=== PATIENT | male | born 1975 | race Caucasian/White ===

== ENCOUNTER 2024-05-23 18:13 | Emergency (ER) | payer OTHER, SELFPAY ==
[2024-05-23 18:15] VITALS: BP 156/91
--- NOTE | 2024-05-23 18:50 | ED.GENMED ---
History of Present Illness
General
Chief Complaint: Flank Pain
Source: patient
Exam Limitations: none
Time Seen by Provider: 05/23/24 18:30
History of Present Illness
History of Present Illness:
This is a 48 year old male that comes in with c/o severe right sided abd pain. States that he was just standing in his driveway when he got this acute right sided flank pain. States that at first he thought this was musculoskeletal in nature. States
that he then broke out in a sweat and vomiting. States that he tried laying down and it just felt sore. Denies any fever, chills, chest pain, SOB, nausea, diarrhea, headache, dizziness, urinary burning.
Past History
Past History
ED Past Medical History: HTN and Other (Polycystic kidney disease)
ED Past Surgical History: Urological (Kidney transplant Right)
Social History
Tobacco: Former smoker
Alcohol: None
Personal:
Living: with family
Employment: Employed
Review of Systems
Review of Systems
All Other Systems: ROS reviewed and negative except as documented in HPI and ROS
Constitutional: Reports no symptoms; Denies fever or chills
EENT: Reports no symptoms
Respiratory: Reports no symptoms; Denies cough or trouble breathing
Cardiac: Reports no symptoms; Denies chest pain
ABD/GI: Reports abdominal pain and vomiting; Denies nausea or diarrhea
: Reports no symptoms; Denies dysuria, frequency or urgency
Musculoskeletal: Reports no symptoms
Skin: Reports no symptoms
Neurological: Reports no symptoms; Denies dizzy or headache
Psychiatric: Reports no symptoms
Phy Exam
General Physical Exam
General Presentation: well appearing and no apparent distress
General age: appears stated age
General Skin: warm and dry
General Habitus: normal
General Mental: alert
General Hydration: appears well hydrated
ENT Exam
ENT Exam: TM's normal, pharynx normal and neck supple
Eye Exam
Eye Exam: EOMI
Cardiovascular Exam
Cardiovascular Exam: regular rate/rhythm, no edema, no murmur and normal peripheral pulses
Pulmonary Exam
Pulmonary Exam: lungs clear, no respiratory distress, no rales, chest non tender, no crackles, no rhonchi, no wheezing and no cough
Gastrointestinal Exam
Gastrointestinal Exam: normal bowel sounds, non tender, soft, no organomegaly, no pulsatile mass and non distended
Musculoskeletal Exam
Musculoskeletal Exam: full ROM and no edema
Skin Exam
Skin Exam: normal color, warm/dry, no rash and no petechia
Psychiatric Exam
Psychiatric Exam: normal mood/affect
Course
Orders/Labs/Results
Orders:
Orders
05/23/24 18:49
0.9% Sodium Chloride 1000 ml [Nss] 1,000 ml IV BOLUS
05/23/24 18:50
CT Abd/pel Without Iv Or Oral Urgent
Comment: Kidney transplant, Polycystic kidney disase
Reason For Exam: Right sided pain.
05/23/24 19:08
Complete Blood Count/With Diff Urgent
Comprehensive Metabolic Panel Urgent
05/23/24 19:11
Acetaminophen [Tylenol] 1,000 mg .ROUTE .STK-MED ONE
05/23/24 19:13
Acetaminophen [Tylenol] 1,000 mg PO NOW STA
05/23/24 19:55
Urinalysis Reflex To Culture Urgent
Date Specimen was Collected: 05/23/24
Time Specimen was Collected: 19:40
Abnormal Lab Results
05/23/24
19:08
Abs Immat Gran (auto) 0.1 H 10^3/uL
(0-0.05)
Absolute Neuts (auto) 7.8 H 10^3/uL
(1.4-6.5)
Absolute Lymphs (auto) 0.3 L 10^3/uL
(1.2-3.4)
Absolute Monos (auto) 0.7 H 10^3/uL
(0.1-0.6)
Immature Gran % 0.7 H %
(0-0.5)
Neutrophils % 86.1 H %
(42.2-75.2)
Lymphocytes % 3.8 L %
(20.5-51.1)
Carbon Dioxide 21 L mmol/L
(22-30)
BUN 35 H mg/dl
(9-20)
Creatinine 1.9 H mg/dL
(0.7-1.3)
05/23/24 19:08
05/23/24 19:08
Dehydration. Chronic renal insufficiency ( Patient Cr 1.8 on prior labs from his phone), Urine negative for infection.
Vital Signs
Initial and Last Documented VS:
Initial Vital Signs
Temp Pulse Resp BP Pulse Ox
99.0 F 90 16 156/91 99
05/23/24 18:15 05/23/24 18:15 05/23/24 18:15 05/23/24 18:15 05/23/24 18:15
Last Documented Vital Signs
Temp Pulse Resp BP Pulse Ox
99.0 F 83 16 133/82 98
05/23/24 18:15 05/23/24 19:13 05/23/24 19:13 05/23/24 20:00 05/23/24 20:00
MDM/Problems Addressed
Differential Diagnosis Includes:
Polycystic kidney rupture, Renal calculus,
MDM/Problems Addressed:
This is a 48 year old male that comes in with c/o right sided abd pain. States that he was just standing in his driveway when he started with severe pain. States that he was sweaty and then just vomited.
Will check labs, Give IV fluids, Urine and get CT scan.
Back into see patient. Reviewed CT scan and labs. Will have patient call his [employer] for further evaluation. Explained that this could be coming from his back as patient lifted an air conditioner last night. Patient can use Tylenol for pain.
Return with any concerns .
Chronic conditions affecting care:
Kidney transplant, Polycystic Kidney
Acute Exacerbation and/or Progression of Chronic Illness:
Polycystic kidney
*Radiology
Radiology exam reviewed: radiology read reviewed (CT night hawk-Transplant kidneyin the right lower quadrant without nephrolithiasis or hydronephrosis. ADPCKD with enlarged [place] kidneys containing innumerable cysts, as well as numerous hepatic
cysts. No hydronephrosis of the [place] kidneys. Normal contracted gallbladder. Mild sigmoid colon) and all reviewed NAD by ED Provider (CT cont- diverticulosis without diverticulitis. No intestinal obstruction or free air. Normal appendix. Enlarged
prostate. Aortoiliac atherosclerotic calcification. )
*Pulse Oximetry
Patient hypoxic: no
*EKG
Interpreted by ED Provider?: NA
Rate: EKG- N/A
*Bell Cleaner Interpretation
Rate: Bell Cleaner- N/A
*Critical Care Note
Total Time (30-74mins, 75-104mins- exclusive of procedures): Not Applicable
ED Attending Note
-
Portions of this chart may have been created with voice recognition software.� Occasional wrong word or��sound alike� substitutions may have occurred due to the inherent limitations of voice recognition software.
Discharge Plan
Departure
Patient Disposition: Home (Routine Discharge)
Date of Disposition: 05/23/24
Time of Disposition: 21:18
Patient with high blood pressure during this ER visit?: Yes
Condition: Good
Covid-19: Not Applicable
Discharge Problem:
Right flank pain
Instructions: Flank Pain (DC), BLOOD PRESSURE
Referrals:
Karen Green DO [Family Provider] -
Activity Restrictions/Additional Instructions:
As discussed, our blood work shows that your BUN/Cr are elevated. This is comparative to your prior labs on your phone. Your urine is negative for infection and your CT scan is negative for any acute process. Please follow up with your [employer]
for further evaluation. Please increase your water intake to 8-8oz of water daily. Tylenol for any discomfort. IF YOU HAVE ANY OTHER CONCERNS PLEASE RETURN TO THE EMERGENCY ROOM.
Interventions
Interventions:
*Risk Screen - Suicide Last Done: 05/23/24 19:07
*General Assessment Last Done: 05/23/24 19:07
*Neglect/Abuse Screening Last Done: 05/23/24 19:07
ED- Fall Risk Assessment Last Done: 05/23/24 19:42
*ED COVID-19 Vaccine History Last Done: 05/23/24 19:07
SC-Dclkeg-Fnrptotnzp Assessment Last Done: 05/23/24 19:12
ED-Male Genitourinary Assessment Last Done: 05/23/24 19:12
Discharge Date and Time
Print Language: YAKUT
[2024-05-23 19:01] VITALS: BP 137/97
[2024-05-23] MEDS: NSS 1000 IV (19:07)
[2024-05-23] MEDS: TYLENOL 1000 MG PO (19:13)
[2024-05-23 19:14] VITALS: BMI 31.5
[2024-05-23 19:16] LABS: % Basophils 0.9 % (0-2); % Eosinophils 0.8 % (0-6); % Immature Granulocytes 0.7 % (0-0.5); % Lymphocytes 3.8 % (20.5-51.1); % Monocytes 7.7 % (1.7-9.3); % Neutrophils 86.1 % (42.2-75.2); Absolute Basophils 0.1 10^3/uL (0-0.2); Absolute Eosinophils 0.1 10^3/uL (0-0.7); Absolute Immature Granulocytes 0.1 10^3/uL (0-0.05); Absolute Lymphocytes 0.3 10^3/uL (1.2-3.4); Absolute Monocytes 0.7 10^3/uL (0.1-0.6); Absolute Neutrophils 7.8 10^3/uL (1.4-6.5); Hematocrit 41.1 % (39.0-52.0); Hemoglobin 14.4 g/dL (13.0-18.0); Mean Corpuscular Hgb 29.6 pg (27.0-31.0); Mean Corpuscular Volume 84.6 fL (80.0-94.0); Mean Platelet Volume 9.9 fL (7.4-10.4); Nucleated Red Blood Cells % 0 % (-); Platelet Count 262 10^3/uL (130-400); Red Blood Cell Count 4.86 10^6/uL (4.70-6.10); Red Cell Dist. Width 12.6 % (11.5-14.5); White Blood Cell Count 9.1 10^3/uL (4.8-10.8)
[2024-05-23 19:35] LABS: ALT (SGPT) 23 U/L (0-50); AST (SGOT) 27 U/L (17-59); Albumin 4.3 g/dl (3.5-5.0); Alkaline Phosphatase 71 U/L (38-126); Blood Urea Nitrogen 35 mg/dl (9-20); Carbon Dioxide 21 mmol/L (22-30); Chloride 106 mmol/L (98-107); Estimated Creatinine Clearance 51 ml/min; Glucose 93 mg/dl (70-99); Potassium 4.7 mmol/L (3.5-5.1); Sodium 136 mmol/L (135-145); Total Bilirubin 0.7 mg/dl (0.2-1.3); Total Protein 6.7 g/dl (6.3-8.2); eGFR 42.71
[2024-05-23 20:00] VITALS: BP 133/82
[2024-05-23 20:04] LABS: Urine Albumin Negative (Neg - Trace); Urine Bilirubin Negative (Negative); Urine Character Clear (Clear); Urine Color Yellow; Urine Glucose Negative (Negative); Urine Ketone Negative (Negative); Urine Leukocyte Negative (Negative); Urine Nitrite Negative (Negative); Urine Occult Blood Negative (Negative); Urine Specific Gravity 1.005 (<1.030); Urine Urobilinogen Negative (Neg - 1+); Urine pH 6.5 (5.0-9.0)
[2024-05-23 21:00] VITALS: BP 128/82
== END 2024-05-23 21:38 | disposition home or self-care (01) ==
LOC: EMR 18:13
PROVIDERS: Clinical Nurse Specialist Family Health; EMERGENCY PHYSICIAN Emergency Medicine; FAMILY PHYSICIAN Family Medicine
DX: R10.9 Unspecified abdominal pain (principal); Q61.3 Polycystic kidney, unspecified; I12.9 Hypertensive chronic kidney disease with stage 1 through stage 4 chronic kidney disease, or unspecified chronic kidney disease; N18.9 Chronic kidney disease, unspecified; E86.0 Dehydration; Z87.891 Personal history of nicotine dependence; Z94.0 Kidney transplant status
CPT/HCPCS: 99284; 96360; 74176; 80053; 81003; 85025

== ENCOUNTER 2024-05-24 18:29 | Emergency (ER) | payer OTHER, SELFPAY ==
[2024-05-24 18:34] VITALS: BP 150/94
[2024-05-24 18:59] LABS: COVID-19 Antigen Negative (Negative)
[2024-05-24 20:05] VITALS: BP 166/102
[2024-05-24 21:10] VITALS: BP 135/95
[2024-05-24 21:14] VITALS: BMI 33.6
[2024-05-24 21:15] LABS: % Basophils 0.4 % (0-2); % Eosinophils 0.4 % (0-6); % Immature Granulocytes 0.4 % (0-0.5); % Lymphocytes 3.4 % (20.5-51.1); % Monocytes 9.8 % (1.7-9.3); % Neutrophils 85.6 % (42.2-75.2); Absolute Lymphocytes 0.4 10^3/uL (1.2-3.4); Absolute Monocytes 1.1 10^3/uL (0.1-0.6); Absolute Neutrophils 9.7 10^3/uL (1.4-6.5); Hematocrit 38.7 % (39.0-52.0); Hemoglobin 13.8 g/dL (13.0-18.0); Mean Corp Hgb Conc. 35.7 g/dL (33.0-37.0); Mean Corpuscular Hgb 28.8 pg (27.0-31.0); Mean Corpuscular Volume 80.8 fL (80.0-94.0); Mean Platelet Volume 9.4 fL (7.4-10.4); Nucleated Red Blood Cells % 0 % (-); Platelet Count 273 10^3/uL (130-400); Red Blood Cell Count 4.79 10^6/uL (4.70-6.10); Red Cell Dist. Width 12.5 % (11.5-14.5); White Blood Cell Count 11.3 10^3/uL (4.8-10.8)
[2024-05-24 21:34] LABS: ALT (SGPT) 20 U/L (0-50); AST (SGOT) 25 U/L (17-59); Albumin 4.3 g/dl (3.5-5.0); Alkaline Phosphatase 61 U/L (38-126); Blood Urea Nitrogen 24 mg/dl (9-20); Calcium 10.1 mg/dl (8.4-10.2); Carbon Dioxide 23 mmol/L (22-30); Chloride 108 mmol/L (98-107); Estimated Creatinine Clearance 62 ml/min; Glucose 101 mg/dl (70-99); Magnesium 1.6 mg/dl (1.6-2.3); Potassium 4.6 mmol/L (3.5-5.1); Sodium 138 mmol/L (135-145); Total Bilirubin 0.8 mg/dl (0.2-1.3); Total Protein 6.5 g/dl (6.3-8.2); eGFR 52.49
[2024-05-24 21:42] LABS: Lactic Acid 0.8 mmol/L (0.7-2.0)
[2024-05-24] MEDS: DECADRON 10 MG IV (22:09)
[2024-05-24] MEDS: OMNIPAQUE 50 ML PO (22:09)
[2024-05-24] MEDS: NSS 500 IV (22:10)
[2024-05-24] MEDS: MORPHINE SULFATE 2 MG IV (22:10)
--- NOTE | 2024-05-24 22:23 | ED.GENMED ---
History of Present Illness
General
Chief Complaint: Abdominal Pain
Source: patient
Exam Limitations: none
Time Seen by Provider: 05/24/24 19:54
Nursing documentation reviewed up to this point in time: agreed with
History of Present Illness
History of Present Illness:
Patient with history of kidney transplant at [facility] 1 year ago, secondary to underlying polycystic kidney disease, presents to ED secondary to persistent right mid back/flank pain over the past 2 days. Denies fever or
chills. Patient has had multiple episodes of vomiting secondary to pain. Denies diarrhea. Denies direct trauma. However, patient does report history of back pain and reports having lifted heavy objects recently, including yesterday afternoon,
shortly preceding his onset of symptoms. Patient denies any pain at the time when he was lifting heavy object however. Denies urinary incontinence. Denies loss of sensation or weakness. Denies difficulty with ambulation. Denies previous history
of similar abdominal/back pain. Denies recent change in medications or diet. Denies change in bowel habits.
Past History
Past History
ED Past Medical History: HTN and Other (Polycystic kidney disease)
ED Past Surgical History: Urological (Kidney transplant Right)
Social History
Tobacco: Former smoker
Alcohol: None
Personal:
Living: with family
Employment: Employed
Review of Systems
Review of Systems
Allergies reviewed?: Yes
All Other Systems: ROS reviewed and negative except as documented in HPI and ROS
Constitutional: Reports no symptoms
EENT: Reports no symptoms
Respiratory: Reports no symptoms
Cardiac: Reports no symptoms
ABD/GI: Reports abdominal pain, nausea and vomiting
: Reports flank pain
Musculoskeletal: Reports back pain
Skin: Reports no symptoms
Neurological: Reports no symptoms
Phy Exam
Physical Exam
Physical Exam:
Physical Exam
General: mild painful distress, not acutely ill. afebrile
Head: nc/at. eomi
Neck: supple. no meningeal signs.
Heart: s1/s2 regular rate and rhythm, no murmur. equal radial pulses.
Lungs: no acute respiratory distress. clear bilaterally
Abdomen: normal bowel sounds. mild RLQ/flank tenderness to palpation.
Neuro: alert and oriented. no focal neurological deficits
Skin: no rash
Psychiatric: well kept. interactive and cooperative
Extremities: no edema. no calf tenderness.
Course
Orders/Labs/Results
Orders:
Orders
05/24/24 18:38
COVID-19 Antigen Urgent
Source: Nasal Swab
05/24/24 21:08
Complete Blood Count/With Diff Urgent
Comprehensive Metabolic Panel Urgent
Lactic Acid Q4H
Comment: CANCEL 2nd LACTIC ACID IF 1st LACTIC ACID IS LESS THAN 2
Magnesium Urgent
Blood Culture Urgent
VINCENT Source: Blood/Venous
Specimen Description:
05/24/24 21:51
Iohexol [Omnipaque] See Protocol PO NOW STA
05/24/24 21:54
0.9% Sodium Chloride 500 ml [Nss] 500 ml IV BOLUS
Dexamethasone Sod Phosphate [Decadron] 10 mg IV NOW STA
Morphine Sulfate 2 mg IV NOW STA
05/25/24 00:00
CT Abd/pel (oral only)-DH Only Urgent
Reason For Exam: right sided abdominal pain
Abnormal Lab Results
05/24/24
21:08
WBC 11.3 H 10^3/uL
(4.8-10.8)
Hct 38.7 L %
(39.0-52.0)
Absolute Neuts (auto) 9.7 H 10^3/uL
(1.4-6.5)
Absolute Lymphs (auto) 0.4 L 10^3/uL
(1.2-3.4)
Absolute Monos (auto) 1.1 H 10^3/uL
(0.1-0.6)
Neutrophils % 85.6 H %
(42.2-75.2)
Lymphocytes % 3.4 L %
(20.5-51.1)
Monocytes % 9.8 H %
(1.7-9.3)
Chloride 108 H mmol/L
(98-107)
BUN 24 H mg/dl
(9-20)
Creatinine 1.6 H mg/dL
(0.7-1.3)
Glucose 101 H mg/dl
(70-99)
05/24/24 21:08
05/24/24 21:08
Vital Signs
Initial and Last Documented VS:
Initial Vital Signs
Temp Pulse Resp BP Pulse Ox
100.3 F 100 20 150/94 98
05/24/24 18:34 05/24/24 18:34 05/24/24 18:34 05/24/24 18:34 05/24/24 18:34
Last Documented Vital Signs
Temp Pulse Resp BP Pulse Ox
98.9 F 104 27 117/88 94
05/24/24 23:30 05/25/24 02:30 05/25/24 02:30 05/25/24 02:03 05/25/24 02:15
MDM/Problems Addressed
MDM/Problems Addressed:
CT report reviewed - likely ruptured cyst with perinephric stranding
Discussed with oncall kidney transplant attending @ [facility] - recommends observation, to make sure that hemorrhage doesn't worsen and for pain control. Does not feel that patient needs an acute invasive intervention at this time. Pt safe to be admitted
to for symptomatic treatment. However, does recommend that patient contact his primary practice nurse as soon as he is discharged from the hospital.
Pt at this time time, does not wish to be admitted. Feels comfortable going home with obtained diagnosis. Will contact his practice nurse in AM, to discuss further treatment, as outpatient. As pt is afebrile, hemodynamically stable, without any acute
distress, I felt that this was a reasonable option. Strongly advised to return to ED with worsening symptoms.
*Critical Care Note
Total Time (30-74mins, 75-104mins- exclusive of procedures): Not Applicable
ED Attending Note
-
Portions of this chart may have been created with voice recognition software.� Occasional wrong word or��sound alike� substitutions may have occurred due to the inherent limitations of voice recognition software.
Discharge Plan
Departure
Patient Disposition: Home (Routine Discharge)
Date of Disposition: 05/25/24
Time of Disposition: 02:31
Patient with high blood pressure during this ER visit?: Yes
Condition: Good
Discharge Problem:
Ruptured cyst of kidney
Prescriptions:
New
oxycodone-acetaminophen [Percocet] 5-325 mg Tablet
1 tab PO Q6HPRN PRN (Reason: pain) Qty: 12 0RF
ondansetron 4 mg Tablet,Disintegrating
4 mg PO TIDPRN PRN (Reason: nausea/vomiting) Qty: 12 0RF
Referrals:
Karen Green DO [Family Provider] -
Activity Restrictions/Additional Instructions:
As discussed, please follow-up with your practice nurse, as soon as you leave the ED for further evaluation and treatment. Your prescriptions have been sent electronically to [facility] pharmacy in [place]
Interventions
Interventions:
*Risk Screen - Suicide Last Done: 05/24/24 21:14
*General Assessment Last Done: 05/24/24 21:14
*Neglect/Abuse Screening Last Done: 05/24/24 21:14
ED- Fall Risk Assessment Last Done: 05/24/24 21:16
*ED COVID-19 Vaccine History Last Done: 05/24/24 21:14
*Nursing Disposition Last Done: 05/25/24 02:44
XU-Gezmzm-Mmljkyxyoe Assessment Last Done: 05/24/24 21:16
ED-Musculoskeletal Assessment Last Done: 05/24/24 21:16
Discharge Date and Time
Discharge Date/Time: 05/25/24 02:46
Print Language: [place]
[2024-05-24 23:00] VITALS: BP 125/87
[2024-05-25] VITALS: BP 128/89
[2024-05-25 02:03] VITALS: BP 117/88
== END 2024-05-25 02:46 | disposition home or self-care (01) ==
LOC: EMR 18:29
PROVIDERS: Emergency Medicine; EMERGENCY PHYSICIAN Emergency Medicine; FAMILY PHYSICIAN Family Medicine
DX: Q61.2 Polycystic kidney, adult type (principal); I10 Essential (primary) hypertension; Z87.891 Personal history of nicotine dependence; Z94.0 Kidney transplant status
CPT/HCPCS: 99284; 96374; 96375; 96361; 74176; 80053; 83605; 83735; 85025; 87040; 87811